=== PATIENT | female | born 1995 | race African-American/Black ===

== ENCOUNTER 2021-07-06 12:05 | Emergency (ER) | payer OTHER, SELFPAY ==
[2021-07-06 12:15] VITALS: BP 129/64; PULSE 106; RESP 18; TEMP 39.4; O2SAT 100
--- NOTE | 2021-07-06 12:25 | ED.URI ---
HPI - URI/Sore Throat General Chief Complaint: Upper Respiratory Infection Stated Complaint: cough Time Seen by Provider: 07/06/21 12:25 Source: patient Mode of arrival: ambulatory Limitations: no limitations History of Present Illness HPI Narrative: 26-year-old female presents with complaint of cough, congestion, headache, fatigue, fever that started yesterday. Patient does work today and needs work note. Denies chest pain and shortness of breath. Did not get flu vaccine this year. Also reports redness and pain to cuticle of right middle finger for 2 to 3 days. Denies injury. Does bite her nails. All systems reviewed and negative except as noted above. Related Data Allergies Allergy/AdvReac Type Severity Reaction Status Date / Time No Known Allergies Allergy Verified 07/06/21 12:27 Review of Systems Review of Systems: CONSTITUTIONAL: Reports fever, chills, or sweats. EYES: Denies visual changes, redness, or discharge. ENT: Reports he is rhinorrhea, congestion, sore throat. Denies denies otalgia. CARDIOVASCULAR: Denies chest pain, palpitations, or edema. RESPIRATORY: Reports cough. Denies dyspnea. GASTROINTESTINAL: Denies abdominal pain, nausea, vomiting, or diarrhea. GENITOURINARY: Denies dysuria or hematuria. SKIN: Denies rash or itching. Reports redness and pain to cuticle of right middle finger. MUSCULOSKELETAL: Denies back pain, joint pain, or myalgia. NEUROLOGIC: Denies headache, numbness, or weakness. PSYCHIATRIC: Denies anxiety or depression. All other systems reviewed are negative, except as documented in HPI. PMFSH Comments At time of signature, agree with nursing past medical, surgical, social and family history. There is no relevant family history pertinent to the presenting complaint. Exam Narrative: GENERAL: This is a well-nourished, well-developed patient. Patient ill-appearing but in no distress. HEAD: normocephalic, atraumatic. EYES: PERRL. Sclera clear/white. Vision is grossly intact. EARS: External ears normal, auditory canals clear and without drainage, TMs normal without perforation. Hearing grossly intact. NOSE: External nose normal with clear nasal drainage. THROAT: Mucous membranes moist, posterior pharynx clear. NECK: Neck supple, non-tender without lymphadenopathy, masses or thyromegaly. CARDIOVASCULAR: Regular rate and rhythm without murmurs, gallops, or rubs. RESPIRATORY: Clear to auscultation. Breath sounds equal bilaterally. No wheezes, rales, or rhonchi. SKIN: warm, Dry, intact with no suspicious lesions or rash, good texture and turgor. Erythema and swelling to cuticle, lateral aspect right middle finger. No fluctuance. NEURO: awake, alert, and oriented to person, place and time. There were no obvious focal neurologic abnormalities. EXTREMITIES: Normal range of motion all extremities. Course Course Level of Care: Express Care Visit Vital Signs Vital signs: Vital Signs Temperature 39.4 C H 07/06/21 12:15 Pulse Rate 106 H 07/06/21 12:15 Respiratory Rate 18 07/06/21 12:15 Blood Pressure 129/64 07/06/21 12:15 Pulse Oximetry 100 07/06/21 12:15 Temperature 39.4 C H 07/06/21 12:15 Pulse Rate 106 H 07/06/21 12:15 Respiratory Rate 18 07/06/21 12:15 Blood Pressure 129/64 07/06/21 12:15 Pulse Oximetry 100 07/06/21 12:15 Reviewed MDM - URI/Sore Throat MDM Narrative Medical decision making narrative: Positive flu a, will prescribe Tamiflu. Redness and swelling to cuticle right middle finger concerning for start of paronychia all there is no fluctuance for I&D. Will prescribe topical Bactroban and recommend warm soapy water soaks. Patient is aware of diagnosis, understands and agrees to treatment plan. Anticipatory guidance given. Patient agrees to follow-up as directed and is aware of reasons to seek care at the emergency department. Portions of this record may have been created with voice recognition software Discharge Plan Discharge Clinical Imp
== END 2021-07-06 12:43 | disposition home or self-care (01) ==
PROVIDERS: Emergency Provider Nurse Practitioner Family
DX: J10.1 Influenza due to other identified influenza virus with other respiratory manifestations (principal); L03.011 Cellulitis of right finger
CPT/HCPCS: 87804; 99203; G0463

== ENCOUNTER 2022-04-13 01:17 | Observation (INO) | payer OTHER, SELFPAY ==
[2022-04-13] VITALS (74 sets, daily range): BP systolic 107–116; BP diastolic 67–73; PULSE 51–130; RESP 17–18; TEMP 36.8; O2SAT 71–100; BMI 34.0
--- NOTE | ~2022-04-13 | US_ITS ---
Limited pelvic ultrasound. Clinical History: Right lower quadrant pain, to contrast or Technique: Realtime transabdominal scanning of the pelvis was performed. Color flow Doppler and Doppl er spectral analysis were performed. Findings: Appendix identified. No abnormality evident in the right lower quadrant. The right ovary measures 2.7 x 2.1 x 2.6 cm. No significant right ovarian or adnexal mass is seen. The left ovary measures 2.5 x 1.7 x 3.1 cm. No significant left ovarian or adnexal mass is seen. Vascular flow present in both ovaries on Doppler spectral analysis. There is no evidence of free flui d in the cul de sac. Impression: Appendix not visualized. Unremarkable ovaries. No evidence for torsion. Reviewed, dictated and finalized at [facility]. [employer] Impression: Appendix not visualized. Unremarkable ovaries. No evidence for torsion.
--- NOTE | ~2022-04-13 | US_ITS ---
Pelvic ultrasound. Clinical History: Second trimester , pelvic pain Technique: Realtime transabdominal and transvaginal scanning of the pelvis was performed. Color flow Doppler and Doppler spectral analysis were performed. Findings: The uterus is anteverted, and contains an intrauterine gestation. Placenta anteriorly locat ed. No placental abnormality identified. heart rate is 153 bpm. Amniotic fluid index is 21.2. C ervix closed, measuring 4.7 cm in length.. There is no evidence of free fluid in the cul de sac. Impression: Live intrauterine gestation with heart rate of 153 bpm. Amniotic fluid index is 21.2. No placental abnormality evident. Normal ovaries are reported on separate Limited pelvic examination. Reviewed, dictated and finalized at location M. MOLOGY TEACHER Impression: Live intrauterine gestation with heart rate of 153 bpm. Amniotic fluid index is 21.2. No placental abnormality evident. Normal ovaries are reported on separate Limited pelvic examination.
--- NOTE | ~2022-04-13 | US_ITS ---
Limited Abdominal Sonogram: Real-time sonographic imaging of the right upper quadrant was performed. Clinical History: Abdominal pain Findings: The liver appears normal with no evidence of mass lesion or bile duct dilatation. Main por larry vein demonstrates normal direction of flow. The gallbladder is well distended, and appears normal with no evidence of gallstone or wall thickening. The common bile duct measures 2 mm. The visualize d pancreas, aorta, and IVC are unremarkable. Impression: No significant abnormality seen. Reviewed, dictated and finalized at location . PHOTO ENGINEER Impression: No significant abnormality seen.
[2022-04-13] MEDS: LACTATED RINGERS 1,000 ML 999 ML IV CONT (02:22)
[2022-04-13] MEDS: ONDANSETRON INJ 4 MG/2 ML VIAL IV PUSH (02:23)
[2022-04-13] MEDS: LACTATED RINGERS 1,000 ML 175 ML IV CONT (03:20)
[2022-04-13] MEDS: TERBUTALINE SULFATE 1 MG/ML VIAL 0.25 MG SUB-Q ×2 (03:22→07:50)
--- NOTE | 2022-04-13 03:46 | OBADM ---
This patient, Cathy Hernandez, admitted to the OB room [facility] for observation. Patient/family oriented to hospital policies and general routines including ID bracelet, bed and alarms, visiting hours, pain management, procedures, bathroom and other care routines, personal items, smoking policy, room service/diet, and visiting hours. Patient/Family are encouraged to report perceived risks to care and to ask questions if they do not understand what they are told or what they should do.
[2022-04-13 03:48] LABS: Hematocrit 30.3 % (37.0-47.0); Hemoglobin 9.4 g/dL (12.0-15.0); Mean Corpuscular Hemoglobin 23.3 pg (26-34); Mean Corpuscular Volume 75.2 fl (80-100); Mean Platelet Volume 10.5 fl (7.4-10.4); Platelet Count Result 251 k/mm3 (150-375); Red Blood Count 4.03 M/mm3 (4.2-5.4); Red Cell Distribution Width 14.7 % (11.5-14.5); White Blood Count 8.8 K/mm3 (4.5-10.0)
[2022-04-13 04:00] LABS: Alanine Aminotransferase 12 U/L (6-35); Albumin Level 3.6 g/dL (3.5-5.1); Alkaline Phosphatase 69 U/L (38-126); Anion Gap 7 mmol/L (8-16); Aspartate Amino Transferase 17 U/L (14-36); Bilirubin,Total 0.5 mg/dL (0.2-1.3); Blood Urea Nitrogen 4 mg/dL (7-17); Calcium 8.6 mg/dL (8.4-10.2); Carbon Dioxide 22 mmol/L (22-30); Chloride 108 mmol/L (98-107); Estimated Glomerular Filt Rate > 60; Glucose 103 mg/dL (65-110); Potassium 3.8 mmol/L (3.4-5.0); Sodium 137 mmol/L (137-145)
--- NOTE | 2022-04-13 07:38 | PC.NURSE ---
Dr. Sahni at bedside discussing plan of care with pt. new orders received.
--- NOTE | 2022-04-13 07:44 | PM.IMHP ---
H&P: HPI History of Present Illness Date/Time: 04/13/22 07:44 Chief Complaint: abdominal pain and nausea/vomiting Narrative: 27 yo at 22 5/7 wks admitted in program mgr with complaint of abdominal pain all over and nausea/vomiting. Pain per patient started at 1pm yesterday and was all over her abdomen. Shortly after she began with nausea and severe vomiting. After IV tylenol, IV fluids, and one dose of terbutaline, pain resolved and this am stated she is feeling cramping every 1-2 minutes. No contractions showing on monitor but some irritability did show initially. U/s with polyhydramnios for this age with 22 CECY. U/s stated possible torsion and possible appy but exam and labs not consistent with those diagnosis. Labs ok except anemia. Patient states she has not been taking her iron because it makes her vomit. Patient is usually seeing Dr. Blakely for care. [facility] Past Medical History Medical History (Updated 04/13/22 @ 07:52 by Gloria Sahni MD) No significant medical problems Surgical History Surgical History (Updated 04/13/22 @ 07:49 by Gloria Sahni MD) History of Meds Home Medications and Allergies Home Medications Medication Instructions Recorded Confirmed Type mupirocin 2 % topical ointment 1 applic topical TID 10 days #15 07/06/21 Rx grams oseltamivir 75 mg capsule (Tamiflu) 75 mg PO BID 5 days #10 caps 07/06/21 Rx Allergies Allergy/AdvReac Type Severity Reaction Status Date / Time No Known Allergies Allergy Verified 07/06/21 12:27 Vital Signs Vital Signs - 24 hr 04/13/22 01:30 04/13/22 01:31 04/13/22 01:36 Temperature 98.3 F Pulse Rate 103 H Respiratory Rate 18 Blood Pressure 107/73 Pulse Oximetry 100 100 04/13/22 01:41 04/13/22 01:45 04/13/22 01:46 Temperature Pulse Rate 100 Respiratory Rate Blood Pressure 116/67 Pulse Oximetry 100 100 04/13/22 01:51 04/13/22 01:52 04/13/22 01:57 Temperature Pulse Rate Respiratory Rate Blood Pressure Pulse Oximetry 100 71 L 100 04/13/22 01:59 04/13/22 01:59 04/13/22 02:04 Temperature Pulse Rate Respiratory Rate Blood Pressure Pulse Oximetry 100 100 100 04/13/22 02:09 04/13/22 02:14 04/13/22 02:16 Temperature Pulse Rate Respiratory Rate Blood Pressure Pulse Oximetry 100 97 98 04/13/22 02:23 04/13/22 02:23 04/13/22 02:25 Temperature Pulse Rate Respiratory Rate Blood Pressure Pulse Oximetry 90 93 97 04/13/22 02:25 04/13/22 02:27 04/13/22 02:32 Temperature Pulse Rate Respiratory Rate Blood Pressure Pulse Oximetry 99 100 99 04/13/22 02:37 04/13/22 02:42 04/13/22 02:47 Temperature Pulse Rate Respiratory Rate Blood Pressure Pulse Oximetry 99 98 99 04/13/22 02:52 04/13/22 02:56 04/13/22 03:01 Temperature Pulse Rate Respiratory Rate Blood Pressure Pulse Oximetry 97 99 99 04/13/22 03:06 04/13/22 03:07 04/13/22 03:12 Temperature Pulse Rate Respiratory Rate Blood Pressure Pulse Oximetry 94 100 98 04/13/22 03:17 04/13/22 03:22 04/13/22 03:26 Temperature Pulse Rate Respiratory Rate Blood Pressure Pulse Oximetry 98 97 100 04/13/22 03:29 04/13/22 03:34 04/13/22 04:15 Temperature Pulse Rate Respiratory Rate Blood Pressure Pulse Oximetry 98 99 99 04/13/22 04:20 04/13/22 04:25 04/13/22 04:30 Temperature Pulse Rate Respiratory Rate Blood Pressure Pulse Oximetry 99 98 100 04/13/22 04:35 04/13/22 04:40 04/13/22 04:45 Temperature Pulse Rate Respiratory Rate Blood Pressure Pulse Oximetry 100 100 100 04/13/22 04:50 04/13/22 04:55 04/13/22 05:00 Temperature Pulse Rate Respiratory Rate Blood Pressure Pulse Oximetry 100 99 98 04/13/22 05:05 04/13/22 05:10 04/13/22 05:15 Temperature Pulse Rate Respiratory Rate Blood
--- NOTE | 2022-04-13 09:30 | PC.NURSE ---
pt eating applesauce
[2022-04-13] MEDS: FAMOTIDINE 20 MG/2 ML VIAL IV PUSH (13:13)
--- NOTE | 2022-04-17 08:56 | PM.OBTRLD ---
OB - Triage/Final Diagnosis Visit Information Reason for evaluation: other ( abdominal pain) Comments/Additional reasons for admission: I have assessed the risk for this patient, Cathy Hernandez, and determined that she would benefit from observation care. Evaluation Laboratory results: Laboratory Tests 04/13/22 04/13/22 03:34 03:34 WBC 8.8 RBC 4.03 L Hgb 9.4 L Hct 30.3 L MCV 75.2 L MCH 23.3 L MCHC 31.0 L RDW 14.7 H Plt Count 251 MPV 10.5 H Sodium 137 Potassium 3.8 Chloride 108 H Carbon Dioxide 22 Anion Gap 7 L BUN 4 L Creatinine 0.60 L Estim Creat Clear Calc Not Reportable Estimated GFR > 60 Glucose 103 Calcium 8.6 Total Bilirubin 0.5 AST 17 ALT 12 Alkaline Phosphatase 69 Total Protein 7.0 Albumin 3.6
== END 2022-04-13 14:15 | disposition home or self-care (01) ==
PROVIDERS: Admitting Provider Obstetrics & Gynecology Gynecology; Visit Provider Obstetrics & Gynecology Gynecology
DX: O26.892 Other specified pregnancy related conditions, second trimester (principal); R10.9 Unspecified abdominal pain; R11.2 Nausea with vomiting, unspecified; O99.012 Anemia complicating pregnancy, second trimester; D64.9 Anemia, unspecified; Z3A.22 22 weeks gestation of pregnancy; Z79.899 Other long term (current) drug therapy
CPT/HCPCS: 36415; 76705; 76815; 76857; 80053; 85027; 96361; 96372; 96374; 96375; G0378; G0379; J0131; J2405; J3105; J7120